=== PATIENT | male | born 1980 | race Caucasian/White ===

== ENCOUNTER 2018-08-19 16:29 | Emergency (ER) | payer BC ==
[~2018-08-19] VITALS: Ht 175.3 cm; Wt 74.8 kg
[2018-08-19 16:47] VITALS: BP 140/98
[2018-08-19 17:41] LABS: Basophils # (auto) 0 uL; Basophils % (auto) 0.2 % (0.0-2.0); Eosinophils # (auto) 0 uL; Hematocrit 47.3 % (41.0-53.0); Hemoglobin 16.2 g/dL (13.5-17.5); Lymphocytes # (auto) 0.7 uL; Lymphocytes % (auto) 4.8 % (10.0-50.0); Mean Corpuscular Hemoglobin 29.6 pg (28.0-32.0); Mean Corpuscular Hgb Conc. 34.2 g/dL (32.0-36.0); Mean Corpuscular Volume 86.5 fL (80.0-100.0); Monocytes # (auto) 1.4 uL; Monocytes % (auto) 9.4 % (0.0-12.0); Neutrophils # (auto) 12.8 uL; Neutrophils % (auto) 85.6 % (37.0-80.0); Nucleated Red Blood Cells % 0.1 %; Platelet Count (auto) 181 10^3/uL (140-450); Red Blood Cells 5.47 10^6/uL (4.5-5.90); Red Cell Distribution Width 12.8 % (11.8-14.3)
== END 2018-08-19 18:14 | disposition home or self-care (01) ==
LOC: ER 16:29
DX: J02.9 Acute pharyngitis, unspecified (principal)
CPT/HCPCS: 36415; 71046; 85025; 87804